=== PATIENT | male | born 1975 | race African-American/Black ===

== ENCOUNTER 2024-12-14 09:45 | Emergency (ER) | payer MEDICAID ==
[2024-12-14 11:32] LABS: Actual Bicarbonate (HCO3v) 26.1 mEq/L (22-28); Analyzer IN Cardio CS ER; Base Excess 2.1 mEq/L (-2 - +2); Calcium, Ionized (venous) 1.15 mmol/L (1.16-1.32); Chloride (VBG) 102 mmol/L (98-106); Hematocrit-VBG 39 % (42.0-52.0); Hemoglobin (Hb) 13.1 g/dL (13.1-17.2); Potassium (VBG) 4.30 mmol/L (3.70-5.30); Puncture Site Other Site; RapidComm Collect By lab; Sodium 138 mmol/L (133-146)
[2024-12-14 11:34] LABS: #Basophils 0.04 10x3/uL (0.0-0.2); #Eosinophils 0.72 10x3/uL (0.0-0.5); #Monocytes 0.94 10x3/uL (0.0-1.1); #Neutrophils 4.47 10x3/uL (1.5-8.4); %Basophils 0.5 % (0.0-2.0); %Eosinophils 9.4 % (0.0-6.0); %Lymphocytes 18.4 % (18.0-47.0); %Monocytes 12.3 % (0.0-10.0); %Neutrophils 58.5 % (40.0-75.0); Hematocrit 36.3 % (38.8-50.0); Hemoglobin 11.7 g/dL (13.5-17.5); Mean Corpuscular Hemoglobin 28.4 pg (27.0-33.0); Mean Corpuscular Volume 88.1 fL (81.2-95.1); Platelet Count 149 10x3/uL (150-450); Red Blood Cell (RBC) Count 4.12 10x6/uL (4.32-5.72); White Blood Cell (WBC) Count 7.65 10x3/uL (3.5-10.5)
[2024-12-14 11:49] LABS: Acetaminophen Less than 10 mcg/mL (Less than 10); Magnesium 1.8 mg/dL (1.6-2.6); Salicylate Less than 8.0 mg/dL (Less than 8.0)
[2024-12-14 11:50] LABS: ALT (SGPT) 50 U/L (Less than 45); AST (SGOT) 28 U/L (11-34); Albumin 3.5 g/dL (3.1-4.5); Alkaline Phosphatase 60 U/L (40-110); Anion Gap 12 mmol/L (10-20); BUN (Urea Nitrogen) 10 mg/dL (8.4-25.7); Bilirubin, Total 0.1 mg/dL (0.3-1.2); Calc. Creatinine Clearance 0 mL/min (70-130); Calcium 9.2 mg/dL (7.8-10.44); Carbon Dioxide 27 mmol/L (22-29); Chloride 104 mmol/L (98-107); Globulin 2.8 g/dL (2.4-3.5); Glucose 109 mg/dL (70-105); Potassium 4.5 mmol/L (3.5-5.1); Sodium 138 mmol/L (136-145)
[2024-12-14 13:02] LABS: Glucose, Urine (Dipstick) Normal (Negative); Leukocyte Negative (Negative); Protein, Urine (Dipstick) Negative (Neg-Trace); Specific Gravity, Urine 1.010 (1.005-1.030)
[2024-12-14 13:09] LABS: Bacteria/HPF None Seen HPF (None Seen); CAUTI Indications for Culture Alt mental st,lethar; RBC/HPF None Seen HPF (0-3); WBC/HPF 0-3 HPF (0-3)
[2024-12-14 13:10] LABS: Cocaine Metabolite Screen Negative (Negative); THC/Cannabinoid Screen Negative (Negative); Tricyclic Screen PRELIM POSITIVE (Negative); Urine Culture Reflex No No
== END 2024-12-14 15:19 | disposition home or self-care (01) ==
LOC: CSHERS 09:45
DX: R41.82 Altered mental status, unspecified (principal); J98.4 Other disorders of lung; F17.200 Nicotine dependence, unspecified, uncomplicated
CPT/HCPCS: 36415; 70450; 71045; 80053; 80306; 80307; 81001; 82140; 82805; 83605; 83735; 85025; 93005